=== PATIENT | female | born 1985 | race Caucasian/White ===

== ENCOUNTER 2017-05-30 09:59 | Emergency (ER) | payer OTHER ==
--- NOTE | 2017-05-30 12:57 | ED ORDER SUMMARY ---
..... Patient: AMISH ROSADO OrderSheet [facility] VisitID: [id number] [address] [place] [address] 32y, F Registration Date/Time: 05/30/2017 ORDER SHEET Weight: 77.1 kg (stated) Allergies: No Known Drug Allergy GENERAL ORDERS: US Transvaginal Probe Urgent (10:14 05/30/2017 Capo NAILS) (Ack 10:17 Pamela ER Tech1) (10:44 LWhalen R.N.) (Cancelled: Other11:23 Capo NAILS) CBC w Diff Urgent (10:14 05/30/2017 Capo NAILS) (Ack 10:17 Pamela ER Tech1) (10:28 JSimbeck R.N.) CMP Urgent (10:05/30/2017 Capo NAILS) (Ack 10:17 Pamela ER Tech1) (10:28 JSimbeck R.N.) UA-Culture if indicated Urgent (10:14 05/30/2017 Capo NAILS) (Ack 10:17 Pamela PERES Tech1) (10:44 LWhalen R.N.) Urine Drug Screen Urgent (10:14 05/30/2017 Capo ANILS) (Ack 10:17 Pamela PERES Tech1) (10:44 LWhalen R.N.) Serum Quantitative Urgent (10:05/30/2017 Capo NAILS) (Ack 10:17 Pamela PERES Tech1) (10:44 LWhalen R.N.) Type & Rh Urgent (10:14 05/30/2017 Capo NAILS) (Ack 10:17 Pamela ER Tech1) (10:28 JSimbeck R.N.) Pelvic Exam Setup (10:15 05/30/2017 Capo NAILS) (10:44 LWhalen R.N.) US OB 1st Trimester w Transvag (8 weeks ago) Urgent (11:22 05/30/2017 Capo NAILS) (Ack 11:25 PWeijosr ER Tech1) (11:56 LWhalen R.N.) MEDICATION ORDERS: Tylenol PO 650 mg (NOW) (10:14 05/30/2017 Capo NAILS) (10:44 LWhalella R.N.) RhoGAM IM 300 mcg (NOW) (11:16 05/30/2017 Capo NAILS) (12:17 LWjosue R.N.) IV FLUIDS: IV NS : initial bolus 1000 mL (1000 mL/hr), then 125 mL/hr for 4h (NOW); Urgent (10:14 05/30/2017 Capo NAILS) (10:21 LWhalella R.N.) Demerol IV 12.5 mg (NOW) (11:20 05/30/2017 Capo NAILS) (11:29 LWjosue R.N.) Ativan IV 0.5 mg (NOW) (11:20 05/30/2017 Capo NAILS) (11:26 LWhalella R.N.) ORDER SHEET NOTES: [Electronically signed by Atul oYung R.N. (17:56 05/30/2017)] [Electronically signed by Kevin Gant MD (13:10 05/31/2017)] [Electronically locked/signed by Atul Young R.N. (17:56 05/30/2017)]
--- NOTE | 2017-05-30 12:57 | ED CLINICAL REPORT ---
Clinical Report - Physicians/Mid Levels [facility] [address] [place] [address] 05/30/2017 10:05 Patient: AMISH AGUILAR Time Seen: 10:11 May 30 2017. Arrived- By ambulance. Historian- patient, EMS personnel, family and significant other. CPT: ER phys charges level 4 (#[id number]). HISTORY OF PRESENT ILLNESS Chief Complaint: PELVIC PAIN and VAGINAL BLEEDING. This started just prior to arrival and still present. The symptoms are described as moderate. Modifying factors. Not worsened by anything. Not relieved by anything. The patient has had pelvic pain. She has had abnormal bleeding described as heavier than normal period. Not passing clots. No low back pain, pain with urination, urinary frequency, urgency of urination or hematuria. Currently : 8 weeks gestation by dates. No recent sonogram. Similar symptoms previously: None. Recent medical care: Not recently seen/assessed. REVIEW OF SYSTEMS No nausea, vomiting, diarrhea, black stools or fever. No chills, sore throat, cough, difficulty breathing or chest pain. No skin rash, enlarged lymph nodes, chills, fatigue or fever. No cough, urinary frequency, hematuria or difficulty with urination. Recent dental abscess that drained spontaneously, no antibiotics. All systems otherwise negative, except as recorded above. PAST HISTORY ( ). Additional Surgeries: no known surgeries. Medications: ClonazePAM Oral. Methadone HCl Oral. Allergies: No Known Drug Allergy. SOCIAL HISTORY Heavy tobacco smoker (cigarette)- 1 pack per day. History of drug use: methamphetamines. No alcohol use. ADDITIONAL NOTES The nursing notes have been reviewed. PHYSICAL EXAM Vital Signs: 05/30/2017 10:00 BP: 106/57. HR: 92. RR: 18. O2 saturation: 98%. Temp: 98.6 F. Appearance: Alert. No acute distress. Anxious. HEENT: Normal external inspection. ENT: Pharynx normal. Neck: Neck supple. CVS: Heart sounds normal. Respiratory: No respiratory distress. Breath sounds normal. Chest nontender. Abdomen: Soft. Mild tenderness in the suprapubic area and lower abdomen. No guarding. No mass. Back: Normal external inspection. No CVA tenderness. : Cervical os open. Tissue present in the vagina ( sac seen. Sac ruptures and fetus delivered. Placenta still not delivered.). Skin: Normal skin color. No rash. Extremities: Extremities nontender. Neuro: Oriented X 3. Mood/affect normal. No motor deficit. No sensory deficit. LABS, X-RAYS, AND EKG Pelvic Sonogram: 11 week fetus , no heart tones in the cervical canal. Study type: bedside transvaginal evaluation. The study was independently viewed by me and interpreted contemporaneously by me. Laboratory Tests: UA-Culture if indicated: (ROCKY: 05/30/2017 10:35) ( MsgRcvd 05/30/2017 11:02) Final results Test Result Flag Units (Reference) URINE COLOR YELLOW URINE APPEARANCE CLEAR URINE GLUCOSE NEGATIVE (NEGATIVE) URINE BILIRUBIN NEGATIVE (NEGATIVE) URINE KETONE NEGATIVE (NEGATIVE) URINE SPECIFIC GRAVITY 1.015 (1.010-1.030) URINE PH 8.5 H (5.0-8.0) URINE PROTEIN NEGATIVE (NEGATIVE) URINE UROBILINOGEN 0.2 EU/dL (0.2-1.0) URINE NITRITE NEGATIVE (NEGATIVE) URINE BLOOD NEGATIVE (NEGATIVE) URINE LEUK ESTERASE NEGATIVE (NEGATIVE) URINE RBC RARE rbc/hpf (0-1) URINE WBC NONE SEEN wbc/hpf (0-1) URINE EPITHELIAL CELLS 3-5 EPI/hpf (0-5) URINE BACTERIA TRACE (<1+) (NONE SEEN) URINE COMMENT CULT NOT INDICATED TRACE YEASTURINE CULTURES ARE SET-UP BASED ON THE FOLLOWING CRITERIA:POSITIVE NITRITEPOSITIVE LEUKOCYTE ESTERASEGREATER THAN 10 WHITE BLOOD CELLSMODERATE (2+) OR GREATER BACTERIA CBC w Diff: (ROCKY: 05/30/2017 10:43) ( MsgRcvd 05/30/2017 10:55) Final results Test Result Flag Units (Reference) WHITE BLOOD COUNT 7.2 K/uL (4.5-11.5) RED BLOOD COUNT 3.63 L M/uL (4.00-5.20) HEMOGLOBIN 11.0 L gm/dL (12.0-16.0) HEMATOCRIT 33.1 L % (36.0-46.0) MEAN CELL VOLUME 91 fL (80-100) MEAN CORPUSCULAR HGB 30 pg (26-34) MEAN CORPUSCULAR HGB CONC 33 g/dL (31-37) RED CELL DISTRIBUTION WIDTH 13.6 % (11.6-14.8) PLATELET COUNT 272 K/uL (150-400) NEUTROPHIL % 60.0 % (50-75) LYMPH % 28.2 % (25-40) MONO % 8.2 % (3-14) EOSINOPHIL % 3.1 % (0-4) BASOPHIL % 0.5 % (0-2) Urine Drug Screen: (ROCKY: 05/30/2017 10:35) ( [facility] 05/30/2017 11:09) Final results Test Result Flag Units (Reference) AMPHETAMINE/METHAMPHETAMINE POSITIVE H (NEGATIVE) BARBITURATE NEGATIVE (NEGATIVE) BENZODIAZEPINE NEGATIVE (NEGATIVE) CANNABINOID NEGATIVE (NEGATIVE) COCAINE NEGATIVE (NEGATIVE) ECSTASY NEGATIVE (NEGATIVE) METHADONE NEGATIVE (NEGATIVE) OPIATE POSITIVE H (NEGATIVE) The urine drug screen is a qualitative screening test fordrug overdose and abuse. All screen results should beconsidered as presumptive.Drugs screened for are as follows:BenzodiazepinesCocaineAmphetamines/MetamphetaminesTHC (Tetrahydrocannabinol)OpiatesBarbituratesEcstasyMethadonePositive results are unconfirmed. For confirmation, notifythe lab for the specimen to be sent to the reference lab.All confirmations must be performed by a differentmethodology.The ingestion of natural herbal and plant productscontaining Ephedra/Ephedra metabolites can produce in urineone or more substances capable of cross reacting withamphetamine/methamphetamine immunoassays. These testsprovide a preliminary result only. A more specificalternative chemical method must be used to obtain aconfirmed analytical result. Type & Rh: (ROCKY: 05/30/2017 10:43) ( [facility] 05/30/2017 11:12) Final results Test Result Flag Units (Reference) PATIENT BLOOD TYPE O Negative . PROGRESS AND PROCEDURES Course of Care: IV NS Tylenol 650 mg po Demerol 12.5 mg IV Ativan 0.5 mg IV 11:20 05/30/17. Discussed miscarriage with patient. RHOGAM 300 mcg IM Patient is stable. Symptoms much better. Patient/family counseled. Disposition: Discharged. Condition: stable and improved. CLINICAL IMPRESSION Complete spontaneous (miscarriage). Positive test in the emergency department.No complications. Substance abuse problems: abuse of opiates and methamphetamine. INSTRUCTIONS No sexual contact until released. (To Methadone Clinic: Your patient , Amish Aguilar, was seen in the ER and needed narcotic pain medication .). Warnings: Further evaluation is necessary. GENERAL WARNINGS: Return or contact your physician immediately if your condition worsens or changes unexpectedly, if not improving as expected, or if other problems arise. Your Current Medications: CONTINUE TAKING THE FOLLOWING MEDICATIONS: ClonazePAM Oral. Methadone HCl Oral. Follow-up: Follow up with your doctor Friday in five days. Call for the next available appointment. Understanding of the discharge instructions verbalized by patient. (Electronically signed by Kevin Gant MD 05/31/2017 13:10)
--- NOTE | 2017-05-30 12:57 | ED NURSING NOTES ---
Clinical Report - Nurses [facility] [address] [place] [address] 05/30/2017 10:05 [id number] Triage time 10:15 May 30 2017. Acuity: LEVEL 2. Chief Complaint: ABDOMINAL PAIN and CRAMPS, POSSIBLE CONTRACTIONS and VAGINAL BLEEDING. LINDA COMA SCORE: Linda Coma Scale: 15- eyes open spontaneously (4); best verbal response- oriented x 4 (5); best motor response- obeys commands (6). --10:53 Atul Young R.N. late entry - 10:00 05/30/17. --11:58 Atul Young R.N. 10:00 05/30/17. BP: 106/57. HR: 92. RR: 18. O2 saturation: 98%. Temp: 98.6 F. Pain level now 06/09. --11:58 Atlu Young R.N. Weight: 77.1 kg stated. Height/Length: 66 inches Per Patient. BMI: 27.4. --11:19 Atul Young R.N. Medications Methadone HCl Oral. --10:51 Atul Young R.N. ClonazePAM Oral. --10:51 Atul Young R.N. Allergies No Known Drug Allergy. --10:51 Atul Young R.N. History Arrived by EMS. Historian: patient. Accompanied by family. Onset. (0500). 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 PAST MEDICAL HX: Currently : confirmed methadone clinic. confirmed with home test and urine test. Patient has had no care. FALL RISK ASSESSMENT: Fall risk assessment completed. No fall risk identified. NUTRITIONAL RISK ASSESSMENT: The nutritional risk assessment revealed no deficiencies. FUNCTIONAL ASSESSMENT: Functional assessment: no impairments noted. LEARNING NEEDS ASSESSMENT: The learning needs assessment revealed no barriers. SKIN INTEGRITY ASSESSMENT: Skin integrity risk assessment completed. No skin integrity risk identified. --10:53 Atul Young R.N. PAST MEDICAL HX: Immunizations: up-to-date. Last normal menstrual period- doesn't rememeber thinks 8 weeks in gestation. OB history: G 8; P 3; Ab 5. SOCIAL HX: Current every day heavy tobacco smoker (cigarette)- less than 1 pack per day. History of drug use: methamphetamines. No alcohol use. SELF HARM ASSESSMENT: A self harm assessment was performed. The patient answered "yes" to the question "Have you recently felt down, depressed, or hopeless?" and "no" to the question "Do you have thoughts of harming or killing yourself?". FALL RISK ASSESSMENT: Fall risk assessment completed. No fall risk identified. NUTRITIONAL RISK ASSESSMENT: The nutritional risk assessment revealed no deficiencies. FUNCTIONAL ASSESSMENT: Functional assessment: no impairments noted. LEARNING NEEDS ASSESSMENT: The learning needs assessment revealed no barriers. ABUSE ASSESSMENT: Abuse assessment: (yes) The patient was asked "Do you feel safe in your home?". SKIN INTEGRITY ASSESSMENT: Skin integrity risk assessment completed. No skin integrity risk identified. --11:21 Atul Young R.N. PROBLEMS: Addiction. Anxiety Reaction. Teeth decay. --10:52 Atul Young R.N. ADDITIONAL SURGERIES: no known surgeries. Interventions ID band on patient. --10:53 Atul Young R.N. PHYSICAL ASSESSMENT To room via stretcher. GENERAL / NEURO / PSYCH: Alert. Oriented X 4. Appears anxious and in distress. HEENT: Mucous membranes are pink. RESPIRATORY: Respirations not labored. Breath sounds within normal limits. CVS: Normal heart rate and rhythm. Capillary refill less than 2 seconds. GI / : Abdomen soft. Abdominal tenderness. Bowel sounds within normal limits. Moderate vaginal bleeding present, consisting of bright red blood with clots .1 pad per hour. EXTREMITIES: No lower extremity edema. SKIN: Skin is warm and dry. --10:55 Atul Young R.N. NURSING PROGRESS NOTES 10:16 05/30/2017 Site #1 started via IV in the right hand with an 20g angiocath, with aseptic technique and good blood return; one attempt. Blood drawn. Saline lock flushed with 10 mL saline. --10:21 Atul Young R.N. 10:21 05/30/2017 Started bag #1 1000 mL IV Fluids IV NS (Saline); at 1000 mL/hr over 1 hour(s) via site #1 via IV pump. Allergies verified and confirmed 5 rights. IV patency established. IV site checked: no pain, redness, or swelling. IV flushed thoroughly pre- and post-medication administration. --10:21 Atul Young R.N. 10:44 05/30/2017 Tylenol (Acetaminophen) PO Tablets 650 mg given. Allergies verified and confirmed 5 rights. --10:44 Atul Young R.N. The initial plan of care for this patient includes an assessment with efforts to address patient positioning, appropriate ambient lighting and comfortable environmental temperature. Pulse oximeter and NIBP monitor placed on patient. Patient gowned. Reassurance given. Call light placed in reach. Side rails up x 1. Bed placed in lowest position. Brakes of bed on. --10:55 Autl Young R.N. ( Patient cleaned up and clothing changed.). --10:55 Atul Young R.N. 12 fr in/out catheterization. During procedure hand hygiene observed and sterile equipment and aseptic technique used. Return of yellow-colored clear urine; odor is normal. She tolerated procedure well. --10:56 Atul Young R.N. 10:15 05/30/2017 Site #2 started via IV in the left hand with an 20g angiocath, with aseptic technique and good blood return; one attempt. Blood drawn: rainbow set. Labeled in the presence of the patient and sent to the lab. Saline lock flushed with saline. --10:56 Atul Young R.N. 11:26 05/30/2017 Ativan (LORazepam) IVP 0.5 mg given over 1 minute(s) via site #1. Allergies verified, confirmed 5 rights and sedative warning given to the patient. IV patency established. IV site checked: no pain, redness, or swelling. IV flushed thoroughly pre- and post-medication administration. --11:26 Atul Young R.N. 11:29 05/30/2017 Demerol (Meperidine HCl) IVP 12.5 mg given over 1 minute(s) via site #1. Allergies verified and confirmed 5 rights. IV patency established. IV site checked: no pain, redness, or swelling. IV flushed thoroughly pre- and post-medication administration. --11:29 Atul Young R.N. 11:15 05/30/17. BP: 124/73. HR: 81. RR: 18. O2 saturation: 99%. 11:00 05/30/17. BP: 124/70. HR: 84. RR: 18. O2 saturation: 98%. 10:45 05/30/17. BP: 102/52. HR: 79. RR: 20. O2 saturation: 98%. 10:15 05/30/17. BP: 107/60. HR: 88. RR: 18. O2 saturation: 96%. --12:01 Atul Young R.N. 11:45 05/30/17. BP: 122/68. HR: 72. RR: 18. O2 saturation: 100%. 11:30 05/30/17. BP: 120/67. HR: 79. RR: 20. O2 saturation: 100%. --12:02 Atul Young R.N. 11:30 05/30/2017 IV Fluids IV NS Discontinued: bag #1 infused. Total amount infused: 1000 mL. IV patency established. IV site checked: no pain, redness, or swelling. IV flushed thoroughly. --17:56 Atul Young R.N. 12:10 05/30/2017 Rhogam IM 300 mcg given. Given in the right gluteus beverley. Allergies verified and confirmed 5 rights. --12:17 Atul Young R.N. 12:15 05/30/17. ( Fetus passed on vaginal exam. Formed fetus approx 12 weeks in gestation. Sent to the lab. Bleeding controlled.). --13:05 Atul Young R.N. 12:45 05/30/17. ( Patient up to the commode bleeding in control dime size clot passed. Large void completed.). --13:06 Atul Young R.N. 12:51 05/30/2017 Site #2 removed upon discharge. Catheter intact. Pressure dressing applied. --13:06 Atul Young R.N. 12:51 05/30/2017 Site #1 removed upon discharge. Catheter intact. Pressure dressing applied. --13:06 Atul Young R.N. DISPOSITION / DISCHARGE Departure time: 13:May 30 2017. Condition at departure: improved. No learning barriers present. Discharge instructions provided and reviewed with the patient. Reviewed warnings. Reviewed medication(s). Treatments reviewed. Reviewed referrals. Patient verbalized understanding. Written instructions provided in [place]. The patient was discharged home and accompanied by spouse. She left the Emergency Department ambulatory and via private vehicle. Spouse driving. --13:04 Atul Young R.N. 13:03 05/30/17. BP: 112/69. HR: 86. RR: 18. O2 saturation: 98%. Temp: 98.6 F. Pain level now 0/10. --13:04 Atul Young R.N. Locked/Released at 05/30/2017 17:56 by Atul Young R.N.
--- NOTE | 2017-05-30 12:57 | ED ORDER SUMMARY ---
..... Patient: AMISH ROSADO OrderSheet [facility] VisitID: [id number] [address] [place] [address] 32y, F Registration Date/Time: 05/30/2017 ORDER SHEET Weight: 77.1 kg (stated) Allergies: No Known Drug Allergy GENERAL ORDERS: US Transvaginal Probe Urgent (10:14 05/30/2017 Capo NAILS) (Ack 10:17 Pamela ER Tech1) (10:44 LWhalen R.N.) (Cancelled: Other11:23 Capo NAILS) CBC w Diff Urgent (10:14 05/30/2017 Capo NAILS) (Ack 10:17 Pamela ER Tech1) (10:28 JSimbeck R.N.) CMP Urgent (10:05/30/2017 Capo NAILS) (Ack 10:17 Pamela ER Tech1) (10:28 JSimbeck R.N.) UA-Culture if indicated Urgent (10:14 05/30/2017 Capo NAILS) (Ack 10:17 Pamela PERES Tech1) (10:44 LWhalen R.N.) Urine Drug Screen Urgent (10:14 05/30/2017 Capo NAILS) (Ack 10:17 Pamela PERES Tech1) (10:44 LWhalen R.N.) Serum Quantitative Urgent (10:05/30/2017 Capo NAILS) (Ack 10:17 Pamela PERES Tech1) (10:44 LWhalen R.N.) Type & Rh Urgent (10:14 05/30/2017 Capo NAILS) (Ack 10:17 Pamela ER Tech1) (10:28 JSimbeck R.N.) Pelvic Exam Setup (10:15 05/30/2017 Capo NAILS) (10:44 LWhalen R.N.) US OB 1st Trimester w Transvag (8 weeks ago) Urgent (11:22 05/30/2017 Capo NAILS) (Ack 11:25 PWeijosr ER Tech1) (11:56 LWhalen R.N.) MEDICATION ORDERS: Tylenol PO 650 mg (NOW) (10:14 05/30/2017 Capo NAILS) (10:44 LWhalella R.N.) RhoGAM IM 300 mcg (NOW) (11:16 05/30/2017 Capo NAILS) (12:17 LWjosue R.N.) IV FLUIDS: IV NS : initial bolus 1000 mL (1000 mL/hr), then 125 mL/hr for 4h (NOW); Urgent (10:14 05/30/2017 Capo NAILS) (10:21 LWhalella R.N.) Demerol IV 12.5 mg (NOW) (11:20 05/30/2017 Capo NAILS) (11:29 LWjosue R.N.) Ativan IV 0.5 mg (NOW) (11:20 05/30/2017 Capo NAILS) (11:26 LWhalella R.N.) ORDER SHEET NOTES: [Electronically signed by Atul Young R.N. (17:56 05/30/2017)] [Electronically signed by Kevin Gant MD (13:10 05/31/2017)] [Electronically locked/signed by Atul Young R.N. (17:56 05/30/2017)]
--- NOTE | 2017-05-30 14:28 | DIAGNOSTIC IMAGING REPORT ---
PROCEDURE: US OB 1ST TRIMESTER W/TRANSVAG INDICATION: POSSIBLE ECTOPIC TECHNIQUE: Dixon scale, color, and spectral Doppler transabdominal and endovaginal sonographic images of the first trimester gravid uterus were obtained. COMPARISON: None. FINDINGS: TRANSABDOMINAL SCANS: Normal kidneys. TRANSVAGINAL SCANS: Single within the cervix, 4.4 cm (11 weeks 2 days) without cardiac activity. Ovaries not visualized due to patient discomfort. No free fluid. IMPRESSION: 1. demise, located within the cervix.
--- NOTE | 2017-05-31 13:10 | ED DISCHARGE INSTRUCTIONS ---
Patient: KELSEA AGUILAR General Instructions [facility] VisitID: [id number] [place] [address] 32y, F Registration Date/Time: 05/30/2017 Complete spontaneous (miscarriage). Positive test in the emergency department.No complications. Substance abuse problems: abuse of opiates and methamphetamine. INSTRUCTIONS No sexual contact until released. (To Methadone Clinic: Your patient , Kelsea Aguilar, was seen in the ER and needed narcotic pain medication .). Warnings: Further evaluation is necessary. GENERAL WARNINGS: Return or contact your physician immediately if your condition worsens or changes unexpectedly, if not improving as expected, or if other problems arise. Your Current Medications: CONTINUE TAKING THE FOLLOWING MEDICATIONS: ClonazePAM Oral. Methadone HCl Oral. Follow-up: Follow up with your doctor Friday in five days. Call for the next available appointment. Understanding of the discharge instructions verbalized by patient. ADDITIONAL INFORMATION Miscarriage, Spontaneous (Completed) Todays exam shows that your has ended suddenly. While this may be an emotionally difficult time for you, know that it is not an uncommon event. A miscarriage can be due to various causes. These include a problem with the babys chromosomes (genes that carry the information needed for life) or with fertilization or implantation that didnt happen correctly. In most cases no cause can be found. Be assured that this miscarriage was not the result of anything that you did wrong, and it will not interfere with your ability to become in the future. It appears that your miscarriage is complete and all tissue from the has passed. If there are parts of the tissue that remain in the uterus, you will probably have more cramping and bleeding. Home Care: You may resume normal activities if you are not having heavy bleeding or pain. Until the bleeding stops completely and to prevent infection: Do not have sexual intercourse for as long as your healthcare provider tells you. Use sanitary pads instead of tampons. Do not douche. If you feel sadness or grief, it may help to talk about your feelings with family and friends, or with a counselor. Follow Up: Make an appointment to see your doctor in the next one to two weeks for a checkup. If cramping and bleeding return and continue for more than a few days, call your doctor or return here for an exam. The doctor may need to remove remaining tissue from the uterus to stop the bleeding and prevent infection. Or, you may be prescribed medication to take at home to help your body expel the remaining tissue. Note: If you had an ultrasound it will be reviewed by a specialist. You will be notified of any new findings that may affect your care. Get Prompt Medical Attention if any of the following occur: Heavy bleeding (soaking one new pad an hour over three hours) Bleeding that does not stop after ten days Foul-smelling vaginal discharge Fever of 100.4F (38C) or higher, or as directed by your healthcare provider Increasing lower abdominal pain Weakness, dizziness, or fainting You have been given the following additional information: Miscarriage, Spontaneous (Completed) (Electronically signed by Kevin Gant MD 05/31/2017 13:10)
--- NOTE | 2017-05-31 13:10 | ED MAR SUMMARY ---
..... Medication Administration Record [facility] [address] [place] [address] Patient: AMISH ROSADO Visit ID: [id number] 32y, F Weight: 77.1 kg Height/Length: 66 in BMI: 27.4 ALLERGIES: No Known Drug Allergy Start 10:21 05/30/2017 Atul Young R.N., Stop 11:30 05/30/2017 Atul Young R.N. Medication Administered: IV NS (SALINE), Dose: IV Fluids over 1 hour(s), Rate: 1000 mL/hr, Dispensed: 1000 mL bag, Site: #1 right hand. Medication Ordered: IV NS : initial bolus 1000 mL (1000 mL/hr), then 125 mL/hr for 4h (NOW); Urgent. Given 10:44 05/30/2017 Atul Young R.N. Medication Administered: TYLENOL [PO] (ACETAMINOPHEN), Dose: 650 mg Tablets PO. Medication Ordered: Tylenol PO 650 mg (NOW). Given 11:26 05/30/2017 Atul Young R.N. Medication Administered: ATIVAN [IVP] (LORAZEPAM), Dose: 0.5 mg IVP over 1 minute(s), Site: #1 right hand. Medication Ordered: Ativan IV 0.5 mg (NOW). Given 11:29 05/30/2017 Atul Young R.N. Medication Administered: DEMEROL [IVP] (MEPERIDINE HCL), Dose: 12.5 mg IVP over 1 minute(s), Site: #1 right hand. Medication Ordered: Demerol IV 12.5 mg (NOW). Given 12:10 05/30/2017 Atul Young R.N. Medication Administered: RHOGAM [IM], Dose: 300 mcg IM. Medication Ordered: RhoGAM IM 300 mcg (NOW).
--- NOTE | 2017-05-31 13:10 | ED MED RECONCILIATION SUMMARY ---
Patient: AMISH ROSADO Medication Reconciliation Report [facility] VisitID: [id number] [address] [place] [address] 32y, F Registration Date/Time: 05/30/2017 Weight: 77.1 kg Height/Length: 66 in. BMI: 27.4 ALLERGIES: No Known Drug Allergy The patient's Home Medications are listed below: CONTINUE TAKING THE FOLLOWING MEDICATIONS: ClonazePAM Oral Methadone HCl Oral The source(s) of the original Home Medication information: Not obtained. The following Medications were given to the patient in the Emergency Department: IV NS IV Fluids bolus 0, then 1000 mL/hr, administered: 05/30/2017 10:21:00 AM Tylenol [PO] PO 650 mg, administered: 05/30/2017 10:44:00 AM Ativan [IVP] IVP 0.5 mg, administered: 05/30/2017 11:26:00 AM Demerol [IVP] IVP 12.5 mg, administered: 05/30/2017 11:29:00 AM Rhogam [IM] IM 300 mcg, administered: 05/30/2017 12:10:00 PM The following Medications were prescribed to the patient: None.
--- NOTE | 2017-05-31 13:10 | ED MAR SUMMARY ---
..... Medication Administration Record Merged With [facility] [address] [place] [address] Patient: AMISH ROSADO Visit ID: [id number] 32y, F Weight: 77.1 kg Height/Length: 66 in BMI: 27.4 ALLERGIES: No Known Drug Allergy Start 10:21 05/30/2017 Atul Young R.N., Stop 11:30 05/30/2017 Atul Young R.N. Medication Administered: IV NS (SALINE), Dose: IV Fluids over 1 hour(s), Rate: 1000 mL/hr, Dispensed: 1000 mL bag, Site: #1 right hand. Medication Ordered: IV NS : initial bolus 1000 mL (1000 mL/hr), then 125 mL/hr for 4h (NOW); Urgent. Given 10:44 05/30/2017 Atul Young R.N. Medication Administered: TYLENOL [PO] (ACETAMINOPHEN), Dose: 650 mg Tablets PO. Medication Ordered: Tylenol PO 650 mg (NOW). Given 11:26 05/30/2017 Atul Young R.N. Medication Administered: ATIVAN [IVP] (LORAZEPAM), Dose: 0.5 mg IVP over 1 minute(s), Site: #1 right hand. Medication Ordered: Ativan IV 0.5 mg (NOW). Given 11:29 05/30/2017 Atul Young R.N. Medication Administered: DEMEROL [IVP] (MEPERIDINE HCL), Dose: 12.5 mg IVP over 1 minute(s), Site: #1 right hand. Medication Ordered: Demerol IV 12.5 mg (NOW). Given 12:10 05/30/2017 Atul Young R.N. Medication Administered: RHOGAM [IM], Dose: 300 mcg IM. Medication Ordered: RhoGAM IM 300 mcg (NOW).
--- NOTE | 2017-05-31 13:10 | ED MED RECONCILIATION SUMMARY ---
Patient: AMISH ROSADO Medication Reconciliation Report [facility] VisitID: [id number] [address] [place] [address] 32y, F Registration Date/Time: 05/30/2017 Weight: 77.1 kg Height/Length: 66 in. BMI: 27.4 ALLERGIES: No Known Drug Allergy The patient's Home Medications are listed below: CONTINUE TAKING THE FOLLOWING MEDICATIONS: ClonazePAM Oral Methadone HCl Oral The source(s) of the original Home Medication information: Not obtained. The following Medications were given to the patient in the Emergency Department: IV NS IV Fluids bolus 0, then 1000 mL/hr, administered: 05/30/2017 10:21:00 AM Tylenol [PO] PO 650 mg, administered: 05/30/2017 10:44:00 AM Ativan [IVP] IVP 0.5 mg, administered: 05/30/2017 11:26:00 AM Demerol [IVP] IVP 12.5 mg, administered: 05/30/2017 11:29:00 AM Rhogam [IM] IM 300 mcg, administered: 05/30/2017 12:10:00 PM The following Medications were prescribed to the patient: None.
== END 2017-05-30 13:00 | disposition home or self-care (01) ==
LOC: ED SRH 09:59
DX: O03.9 Complete or unspecified spontaneous abortion without complication (principal); O99.321 Drug use complicating pregnancy, first trimester; F11.10 Opioid abuse, uncomplicated; F15.10 Other stimulant abuse, uncomplicated; Z3A.11 11 weeks gestation of pregnancy; F17.210 Nicotine dependence, cigarettes, uncomplicated; Z79.899 Other long term (current) drug therapy
CPT/HCPCS: 81460; 90001; 90004; 90074; 90100; 90155; 90197; 92760; 92761; 92762; 92763; 92764; 92765; 92766; 92767; 95059